=== PATIENT | female | born 1990 | race African-American/Black ===

== ENCOUNTER 2018-09-29 14:25 | Emergency (ER) | payer OTHER ==
[2015-11-16 17:30] VITALS: BP 109/63
[~2018-09-29] VITALS: Ht 167.6 cm; Wt 77.1 kg
--- NOTE | 2018-09-29 15:24 | PHYS DOC ---
Past Medical History Past Medical History: No Pertinent History Past Surgical History: Tonsillectomy Alcohol Use: Occasionally Drug Use: None, Marijuana Adult General Chief Complaint Chief Complaint: PAIN ON URINATION [facility] HPI Patient is a 28 year old AA female, accompanied by her significant other, with complaints of bilateral lower back pain, dysuria, increased urination, and urgency for the last 4 days. Patient states that last night she vomited �2 she denies any vomiting today. Patient also denies any fever, abnormal vaginal discharge, lower abdominal pain, or blood in her urine. She states she just started her menstrual cycle but there was no blood in her urine prior to starting her menstrual cycle. She currently reports that her pain is a 9 out of 10 on the pain scale. Nothing has helped reduce her pain. Review of Systems Review of Systems Constitutional: Denies fever, reports chills Respiratory: Denies cough or shortness of breath [] Cardiovascular: No additional information not addressed in HPI [] GI: Denies abdominal pain or diarrhea; see history of present illness : See history of present illness Musculoskeletal: Reports bilateral low back pain Integument: Denies rash or skin lesions [] Neurologic: Denies headache, focal weakness or sensory changes [] Current Medications Current Medications Current Medications Medications (Trade) Dose Ordered Sig/Arturo Start Time Stop Time Status Last Admin Dose Admin Ceftriaxone Sodium (Rocephin Im) 1,000 mg 1X ONCE 09/29/18 16:30 09/29/18 16:31 UNV Allergies Allergies Allergies Coded Allergies Type Severity Reaction Last Updated Verified No Known Drug Allergies 01/25/14 No Physical Exam Physical Exam Constitutional: Well developed, well nourished, no acute distress, non-toxic appearance. [] HENT: Normocephalic, atraumatic, bilateral external ears normal, oropharynx moist, no oral exudates, nose normal. [] Eyes: conjunctiva normal, no discharge. [] Neck: Normal range of motion, no stridor. [] Cardiovascular:Heart rate regular rhythm, no murmur [] Lungs & Thorax: Bilateral breath sounds clear to auscultation [] Abdomen: soft, no tenderness, no masses, no pulsatile masses. [] Skin: Warm, dry, no erythema, no rash. [] Back: Bilateral CVA tenderness Extremities: No cyanosis, ROM intact Neurologic: Alert and oriented X 3, normal motor function, normal sensory function, no focal deficits noted. [] Psychologic: Affect normal, judgement normal, mood normal. [] Current Patient Data Vital Signs Vital Signs Date Time Temp Pulse Resp B/P (MAP) Pulse Ox O2 Delivery O2 Flow Rate FiO2 09/29/18 14:30 98.3 92 24 125/55 (78) 93 Room Air 98.3 Lab Values Laboratory Tests Test 09/29/18 15:21 09/29/18 15:23 POC Urine HCG, Qualitative Hcg negative (Negative) Urine Collection Type Unknown Urine Color Yellow Urine Clarity Clear Urine pH 8.0 Urine Specific [place] 1.020 Urine Protein 30 mg/dL (NEG-TRACE) Urine Glucose (UA) Negative mg/dL (NEG) Urine Ketones (Stick) >=80 mg/dL (NEG) Urine Blood Moderate (NEG) Urine Nitrite Negative (NEG) Urine Bilirubin Negative (NEG) Urine Urobilinogen Dipstick 1.0 mg/dL (0.2 mg/dL) Urine Leukocyte Esterase Moderate (NEG) Urine RBC 6-10 /HPF (0-2) Urine WBC >40 /HPF (0-4) Urine Squamous Epithelial Cells Mod /LPF Urine Bacteria Few /HPF (0-FEW) Urine Hyaline Casts Few /HPF Urine Mucus Marked /LPF EKG EKG [] Radiology/Procedures Radiology/Procedures [] Course & Med Decision Making Course & Med Decision Making Pertinent Labs and Imaging studies reviewed. (See chart for details) Dx: UTI pyelonephritis 1 gm IM rocephin given in ER. Prescription written for ciprofloxacin, increase clear fluids, avoid bladder irritants. Follow up with PCP if sx persist, return to ER if sx worsen. Patient verbalized an understanding of home care, medications, follow-up, and return to ED instructions and was in agreement with the plan of care. [] Dragon Disclaimer Dragon Disclaimer This electronic medical record was generated, in whole or in part, using a voice recognition dictation system. Departure Departure Impression: Primary Impression: Urinary tract infection Additional Impression: Pyelonephritis Disposition: HOME, SELF-CARE Condition: STABLE Referrals: NO PCP (PCP) Patient Instructions: Pyelonephritis, Adult, [id number] Additional Instructions: Fill prescription(s) and use as directed. Avoid bladder irritants such as caffeine, carbonation, and spicy foods. Increase clear fluids. Follow up with your primary care doctor if symptoms persist, return to the ER if symptoms worsen. Scripts Ciprofloxacin Hcl (CIPROFLOXACIN HCL) 500 Mg Tablet 1 TAB PO BID for 7 Days, #14 TAB 0 Refills Prov: ZAHIRA RAMIREZ APRN 09/29/18 Problem Qualifiers Primary Impression: Urinary tract infection Urinary tract infection type: acute pyelonephritis Qualified Codes: N10 - Acute pyelonephritis ZAHIRA RAMIREZ APRN Sep 29, 2018 15:24
[2018-09-29 15:30] LABS: BILIRUBIN,URINE NEGATIVE (NEG); CLARITY,URINE CLEAR; COLOR,URINE YELLOW; NITRITE,URINE NEGATIVE (NEG); PROTEIN,URINE 30 mg/dL (NEG-TRACE)
[2018-09-29 15:42] LABS: BACTERIA,URINE FEW /HPF (0-FEW); SQUAMOUS EPITHELIAL CELL,UR MOD /LPF; WBC,URINE >40 /HPF (0-4)
[2018-09-29 15:43] LABS: HYALINE CASTS, URINE FEW /HPF
[2018-09-29] MEDS ORDERED: CIPR500T PO (16:20)
[2018-09-29] MEDS ORDERED: cefTRIAXone IM 250 MG VIAL IM ONE ×2 (16:30)
[2018-09-29] MEDS ORDERED: cefTRIAXone IM 1 GM VIAL IM ONE (16:30)
== END 2018-09-29 16:45 | disposition home or self-care (01) ==
LOC: ER 14:25
DX: N10 Acute pyelonephritis (principal); Z90.89 Acquired absence of other organs
CPT/HCPCS: 81001; 81025; 87086; 96372; 99283; J0696; 87186

== ENCOUNTER 2020-07-31 15:03 | Emergency (ER) | payer SELFPAY ==
[~2020-07-31] VITALS: Ht 175.3 cm; Wt 72.7 kg
[~2020-07-31 15:03] MED LIST: CIPR500T PO
--- NOTE | 2020-07-31 15:29 | PHYS DOC ---
Past Medical History Past Medical History: Seizure Past Surgical History: Tonsillectomy Smoking Status: Never Smoker Alcohol Use: Occasionally Drug Use: Marijuana General Adult EDM: Chief Complaint: SEIZURE HPI: HPI: Patient is a 30 year old female comes emergency department via EMS who reports patient had a seizure at work just prior to arrival, it was reported that employees witnessed her having a seizure which they believe was grand mal lasted approximately 30 seconds, patient did not lose continence of bowel or bladder, patient states that she does not remember having the seizure, she remembers working at work and then waking up here in the emergency room bed. Patient is currently alert and oriented x3, patient states she feels just a little off and foggy in her head at this time. Patient denies biting her lips or any of her oral mucosa or tongue. Patient denies any aches or pains, denies other illnesses or physical complaints. Patient does deny recent fever or chills, denies cough, denies shortness of breath, denies chest pain, denies abdominal pains, denies any urinary symptoms, denies vaginal discharge or STI concerns. Patient states that she takes Keppra for her seizures, at this time she cannot recall what her doses patient does report that she has been moving residence and is unsure if she took her morning dose of Keppra or not. Patient states her last grand mal seizure was approximately 3 months ago, patient states that while she does come to the emergency department when she does have seizures on occasion, she has not been hospitalized since her first seizure years ago. Patient's live-in boyfriend at bedside reports that she sees a Dr. Martínez at the epilepsy clinic at [facility], patient's boyfriend states that her last emergency room visit was at [facility] for seizures, however her last seizure she did not go to the emergency department and where he contacted Dr. Martínez and Dr. Martínez adjusted her dose from 600 mg down to 300 mg daily Keppra approximately 3 months ago. Patient's boyfriend states that the patient is presenting in a postictal state very similar to her past seizures. Patient's boyfriend states that they are in fact moving residence and he is also unsure on whether or not she took her morning dose of 300 mg Keppra today. Review of Systems: Review of Systems: 14 body systems of review of systems have been reviewed. See HPI for pertinent positives and negative responses, otherwise all other systems are negative, nonpertinent or noncontributory. Heart Score: Risk Factors: Risk Factors: DM, Current or recent (<one month) smoker, HTN, HLP, family history of CAD, obesity. Risk Scores: Score 0 - 3: 2.5% MACE over next 6 weeks - Discharge Home Score 4 - 6: 20.3% MACE over next 6 weeks - Admit for Clinical Observation Score 7 - 10: 72.7% MACE over next 6 weeks - Early Invasive Strategies Current Medications: Keppra 300 mg daily p.o. Allergies: Allergies: Allergies Coded Allergies Type Severity Reaction Last Updated Verified No Known Drug Allergies 01/25/14 No Physical Exam: PE: Constitutional: Well developed, well nourished, no acute distress, non-toxic ap pearance. HENT: Normocephalic, atraumatic, bilateral external ears normal, oropharynx moist, no oral exudates, nose normal. Tongue and oral mucosa within normal limits no signs of trauma. Eyes: PERRLA, EOMI, conjunctiva normal, no discharge. Neck: Normal range of motion, no tenderness, supple, no stridor. Cardiovascular:Heart rate regular rhythm, no murmur heart sounds S1-S2 to auscultation. Lungs & Thorax: Bilateral breath sounds clear to auscultation 4 quadrants. Abdomen: Bowel sounds normal, soft, no tenderness, no masses, no pulsatile masses. Skin: Warm, dry, no erythema, no rash. Back: No tenderness, no CVA tenderness. Extremities: No tenderness, no cyanosis, no clubbing, ROM intact, no edema. Neurologic: Alert and oriented X 3, normal motor function, normal sensory function, no focal deficits noted. Patient answers questions slowly, consistent with postictal state. Psychologic: Affect normal, judgement normal, mood normal. Current Patient Data: Vital Signs: Vital Signs Date Time Temp Pulse Resp B/P (MAP) Pulse Ox O2 Delivery O2 Flow Rate FiO2 07/31/20 15:03 98.7 74 32 115/56 (75) 100 Room Air 98.7 EKG: EKG: [] Radiology/Procedures: Radiology/Procedures: STATUS: REG ER ORD. PHYSICIAN: PAOLO WHITLEY APRN REASON: SEIZURE. PT REFUSED TO REMOVE EAR PIERCING PROCEDURE: CT HEAD WO CONTRAST CT head without contrast: Reason for examination: Seizure. Axial images were obtained through the brain. No contrast was administered. Patient refused to remove ear piercings which caused streak artifact. Exposure: One or more of the following individualized dose reduction techniques were utilized for this examination: 1. Automated exposure control 2. Adjustment of the mA and/or kV according to patient size 3. Use of iterative reconstruction technique. Ventricular systems are symmetric and not abnormally dilated. No midline shift is seen. There is no evidence of intracranial hemorrhage, infarct, mass or edema. Note is however made of a curvilinear hypodensity extending medially from the posterior aspect of the left lateral ventricle. This is likely artifactual however closed schizencephaly cannot be excluded and further evaluation with MRI should be considered. No abnormalities are seen at the orbits. The paranasal sinuses and mastoid air cells are clear. No acute skull abnormality is evident. IMPRESSION: Curvilinear hypodensity extending medially off the posterior aspect of the left lateral ventricle extending to the posterior falx. This is likely artifactual however schizencephaly cannot be excluded. Further evaluation with MRI should be considered. No other intracranial abnormality seen in the brain. Electronically signed by: Angela Espinosa MD (07/31/2020 5:34 PM) [facility] DICTATED and SIGNED BY: ANGELA ESPINOSA MD DATE: 07/31/20 [id number] 0 Course & Med Decision Making: Course & Med Decision Making Pertinent Labs and Imaging studies reviewed. (See chart for details) 30-year-old female presented emergency department via EMS with complaint of seizure at work last approximately 30 minutes, vital signs reviewed and stable, patient's physical exam was consistent with a postictal state, and ER work-up was started to to include urine assay, serum lab work with Keppra level, CT head related to patient does not have a baseline CAT scan at this facility. Patient is currently alert and oriented x3, patient was not incontinent of bowel or bladder, no signs of oral trauma or biting of the tongue. Awaiting results at this time. Patient lab results are complete, except for Keppra level per lab statement it will take a few days they have to send it out for study, her urine was not infected, she was not , her urine drug screen showed positive for marijuana only, her CBC and CMP were equivocal and unremarkable. Reexamination of patient, patient alert and oriented x3, no longer in a postictal state, patient states she feels much better, patient denies any physical problems or physical ailments, patient discharged to home, patient's CAT scan showed a possible abnormality in which the patient states she is well aware of, however recommended to patient she follow-up with her neurologist at the epilepsy center at to discuss CT findings here at [facility] today. Patient gave verbal understanding of discharge home instructions, return to ER precautions and concerns, patient had no further questions or concerns, patient discharged home without incident. Patient states she feels much better patient appears well and is nontoxic, patient is safe for discharge home. Diagnosis seizures Dragon Disclaimer: Dragon Disclaimer: This electronic medical record was generated, in whole or in part, using a voice recognition dictation system. Departure Departure Impression: Primary Impression: Seizure Additional Impression: Abnormal CT of brain Disposition: 01 DC HOME SELF CARE/HOMELESS Condition: GOOD Referrals: NO PCP (PCP) Patient Instructions: Seizure, Adult Additional Instructions: Please continue taking your normal Keppra dose, follow-up with your doctor at in the epilepsy center for possible adjustment of your Keppra dose, return to [facility] emergency department for worsening symptoms or further concerns. Please follow-up with your epilepsy [facility] Dr. Martínez and discussed with them abnormal CT scan. PAOLO WHITLEY APRN Jul 31, 2020 15:29
[2020-07-31 16:48] LABS: BASO % 0 % (0-3); EOS % 0 % (0-3); HEMATOCRIT 40.5 % (36.0-47.0); HEMOGLOBIN 13.6 g/dL (12.0-15.5); LYMPH # 0.9 x10^3/uL (1.0-4.8); LYMPH % 10 % (24-48); MEAN CORPUSCULAR HEMOGLOBIN 30 pg (25-35); MEAN CORPUSCULAR HGB CONC 34 g/dL (31-37); MEAN CORPUSCULAR VOLUME 90 fL (79-100); MONO # 0.4 x10^3/uL (0.0-1.1); MONO % 5 % (0-9); NEUT # 7.6 x10^3/uL (1.8-7.7); NEUT % 85 % (31-73); PLATELET COUNT 216 x10^3/uL (140-400); RED BLOOD COUNT 4.51 x10^6/uL (3.50-5.40); RED CELL DISTRIBUTION WIDTH 14.1 % (11.5-14.5); WHITE BLOOD COUNT 9.1 x10^3/uL (4.0-11.0)
[2020-07-31 16:56] LABS: BILIRUBIN,URINE NEGATIVE (NEG); CLARITY,URINE CLEAR; COLOR,URINE YELLOW; NITRITE,URINE NEGATIVE (NEG); PH,URINE 6.5 (<5.0-8.0); PROTEIN,URINE NEGATIVE (NEG-TRACE); UROBILINOGEN,URINE 0.2 mg/dL (0.2 mg/dL)
[2020-07-31 17:13] LABS: HYALINE CASTS, URINE MODERATE /HPF
[2020-07-31 17:14] LABS: BACTERIA,URINE MODERATE /HPF (0-FEW); RBC,URINE 0 /HPF (0-2)
[2020-07-31 17:25] LABS: AMPHETAMINE/METHAMPHETAMINE NEG (NEG); BARBITURATES NEG (NEG); BENZODIAZEPINES NEG (NEG); COCAINE NEG (NEG); METHADONE NEG (NEG); OPIATES NEG (NEG); PHENCYCLIDINE NEG (NEG)
[2020-07-31 17:26] LABS: CANNABINOIDS POS (NEG)
--- NOTE | 2020-07-31 17:37 | RAD ---
CT head without contrast: Reason for examination: Seizure. Axial images were obtained through the brain. No contrast was administered. Patient refused to remove ear piercings which caused streak artifact. Exposure: One or more of the following individualized dose reduction techniques were utilized for this examination: 1. Automated exposure control 2. Adjustment of the mA and/or kV according to patient size 3. Use of iterative reconstruction technique. Ventricular systems are symmetric and not abnormally dilated. No midline shift is seen. There is no evidence of intracranial hemorrhage, infarct, mass or edema. Note is however made of a curvilinear hypodensity extending medially from the posterior aspect of the left lateral ventricle. This is likely artifactual however closed schizencephaly cannot be excluded and further evaluation with MRI should be considered. No abnormalities are seen at the orbits. The paranasal sinuses and mastoid air cells are clear. No acute skull abnormality is evident. IMPRESSION: Curvilinear hypodensity extending medially off the posterior aspect of the left lateral ventricle extending to the posterior falx. This is likely artifactual however schizencephaly cannot be excluded. Further evaluation with MRI should be considered. No other intracranial abnormality seen in the brain. Electronically signed by: Angela Cullen MD (07/31/2020 5:34 PM) [facility]
[2020-07-31 19:11] LABS: ALBUMIN 3.9 g/dL (3.4-5.0); ALBUMIN/GLOBULIN RATIO 1.1 (1.0-1.7); CALCIUM 9.3 mg/dL (8.5-10.1); TOTAL PROTEIN 7.4 g/dL (6.4-8.2)
[2020-07-31 19:12] LABS: CREATININE 0.9 mg/dL (0.6-1.0); GFR 89.6; TOTAL BILIRUBIN 0.3 mg/dL (0.2-1.0)
[2020-07-31 21:13] VITALS: BP 98/52
== END 2020-07-31 21:22 | disposition home or self-care (01) ==
LOC: ER 15:03
DX: R56.9 Unspecified convulsions (principal); R93.0 Abnormal findings on diagnostic imaging of skull and head, not elsewhere classified
CPT/HCPCS: 70450; 80053; 80177; 80307; 81001; 81025; 85025; 87086; 99285-25

== ENCOUNTER 2020-11-22 11:14 | Emergency (ER) | payer SELFPAY ==
[~2020-11-22] VITALS: Ht 170.2 cm; Wt 75.0 kg
[~2020-11-22 11:14] MED LIST changes: -CIPR500T PO; +CIPR500T2 PO
[2020-11-22 11:15] VITALS: BP 112/59
[2020-11-22] MEDS ORDERED: OXcarbazepine 300 MG TABLET PO SCH (12:30)
[2020-11-22] MEDS ORDERED: ONDANSETRON ODT 4 MG TAB.RAPDIS. PO ONE (13:15)
[2020-11-22] MEDS ORDERED: OXcarbazepine 300 MG TABLET PO ONE (13:45)
[2020-11-22 13:50] LABS: BILIRUBIN,URINE NEGATIVE (NEG); CLARITY,URINE CLEAR; COLOR,URINE YELLOW; NITRITE,URINE NEGATIVE (NEG); PH,URINE 7.5 (<5.0-8.0); PROTEIN,URINE 100 mg/dL (NEG-TRACE); UROBILINOGEN,URINE 0.2 mg/dL (0.2 mg/dL)
[2020-11-22 14:01] LABS: BACTERIA,URINE MANY /HPF (0-FEW)
[2020-11-22 14:02] LABS: RBC,URINE 0 /HPF (0-2)
[2020-11-22] MEDS ORDERED: CEPH500C PO (14:09)
--- NOTE | 2020-11-22 14:09 | ED.ADGEN ---
Past Medical History Past Medical History: Seizure Past Surgical History: Tonsillectomy Smoking Status: Never Smoker Alcohol Use: Occasionally Drug Use: Marijuana General Adult EDM: Chief Complaint: SEIZURE HPI: HPI: Patient is a 30 year old female who presents emergency department via EMS with reports of having a witnessed seizure while at work this morning. Per EMS patient has a history of seizures. EMS states that the patient did not take her medication this morning. EMS states that coworker said that the patient had a full body seizure that lasted approximately 1 to 2 minutes she has been post ictal ever since the seizure activity. During the seizure the patient was incontinent of urine. Patient is alert to person only at this time therefore HPI is limited. Review of Systems: Review of Systems: Complete ROS is negative unless otherwise noted in HPI. Current Medications: Current Medications Medications (Trade) Dose Ordered Sig/Arturo Start Time Stop Time Status Last Admin Dose Admin Ondansetron HCl (Zofran Odt) 4 mg 1X ONCE 11/22/20 13:15 11/22/20 13:16 DC 11/22/20 13:57 4 MG Oxcarbazepine (Trileptal) 600 mg 1X ONCE 11/22/20 13:45 11/22/20 13:46 DC 11/22/20 13:20 600 MG Allergies: Allergies: Allergies Coded Allergies Type Severity Reaction Last Updated Verified No Known Drug Allergies 01/25/14 No Physical Exam: PE: See Above Constitutional: Well developed, well nourished, no acute distress, non-toxic appearance, confused. [] HENT: Normocephalic, atraumatic, bilateral external ears normal, nose normal. [] Eyes: PERRLA, EOMI, conjunctiva normal, no discharge. [] Neck: Normal range of motion, no stridor. [] Cardiovascular:Heart rate regular rhythm Lungs & Thorax: Respirations even and unlabored, no retractions, no respiratory distress Abdomen: soft, no tenderness Skin: Warm, dry, no erythema, no rash. [] Extremities: No cyanosis, ROM intact, no edema. [] Neurologic: Alert and oriented X 1, normal motor, normal sensory no focal deficits noted. [] Psychologic: Affect normal, judgement normal, mood normal. [] Current Patient Data: Labs: Laboratory Tests Test 11/22/20 13:40 11/22/20 13:43 Urine Collection Type Void Urine Color Yellow Urine Clarity Clear Urine pH 7.5 (<5.0-8.0) Urine Specific [place] 1.020 (1.000-1.030) Urine Protein 100 mg/dL (NEG-TRACE) Urine Glucose (UA) Negative mg/dL (NEG) Urine Ketones (Stick) Negative mg/dL (NEG) Urine Blood Negative (NEG) Urine Nitrite Negative (NEG) Urine Bilirubin Negative (NEG) Urine Urobilinogen Dipstick 0.2 mg/dL (0.2 mg/dL) Urine Leukocyte Esterase Moderate (NEG) Urine RBC 0 /HPF (0-2) Urine WBC 5-10 /HPF (0-4) Urine Squamous Epithelial Cells Many /LPF Urine Bacteria Many /HPF (0-FEW) Urine Mucus Mod /LPF POC Urine HCG, Qualitative Hcg negative (Negative) Vital Signs: Vital Signs Date Time Temp Pulse Resp B/P (MAP) Pulse Ox O2 Delivery O2 Flow Rate FiO2 11/22/20 11:15 98.1 85 18 112/59 (76) 97 Room Air 98.1 EKG: EKG: [] Heart Score: C/O Chest Pain: No Risk Scores: Score 0 - 3: 2.5% MACE over next 6 weeks - Discharge Home Score 4 - 6: 20.3% MACE over next 6 weeks - Admit for Clinical Observation Score 7 - 10: 72.7% MACE over next 6 weeks - Early Invasive Strategies Radiology/Procedures: Radiology/Procedures: [] Course & Med Decision Making: Course & Med Decision Making Pertinent Labs and Imaging studies reviewed. (See chart for details) Patient presented to the emergency room for evaluation after a seizure at work. On arrival patient was postictal and confused as to what happened she was alert to person only. While in the emergency department the patient returned to normal mental status. Patient states that she forgot to take her seizure medication this morning. She denies any recent fever, she stated that she had had a little bit of pain with urination but denies any hematuria, back pain, or increased urinary frequency. UA revealed a 5-10 white blood cell count in the urine. Prescription written for Keflex, encouraged patient to increase her fluids and avoid bladder irritants. Encouraged family to follow-up with her primary the next 1 to 2 days for reevaluation also encouraged her to follow-up with her neurologist at Patient and her mother verbalized an understanding of home care, medications, follow-up, and return to ED instructions and was in agreement with the plan of care. [] Willian Disclaimer: Willian Disclaimer: This electronic medical record was generated, in whole or in part, using a voice recognition dictation system. Departure Departure Impression: Primary Impression: Seizure Additional Impression: Urinary tract infection Disposition: 01 DC HOME SELF CARE/HOMELESS Condition: STABLE Referrals: UNKNOWN PCP NAME (PCP) Patient Instructions: Seizure, Adult, [id number], Urinary Tract Infection, [id number] Additional Instructions: Fill prescription(s) and take as directed. Avoid bladder irritants such as caffeine, carbonation, and spicy foods. Increase clear fluids. Continue taking your seizure medication as prescribed. I recommend that you follow-up with your neurologist Dr. Guzmán at in the next 1 to 2 days, follow-up with your primary care doctor for further evaluation of urinary tract infection. Return to the ER if your symptoms worsen or fever develops. [facility] [address] [place] [address] [facility] [address] [place] [address] [facility] [address] [place] [address] [facility] [address] [place] [address] [facility] [address] [place] [address] [facility] [address] [place] [address] [facility] [address] [place] [address] [facility] [address] [place] [address] [facility] [address] [place] [address] [facility] [address] [place] [address] Scripts Cephalexin (CEPHALEXIN) 500 Mg Capsule 1 CAP PO BID for 7 Days, #14 CAP 0 Refills Prov: ZAHIRA RAMIREZ TEXTILE TECHNOLOGIST 11/22/20 Problem Qualifiers Additional Impression: Urinary tract infection Urinary tract infection type: site unspecified Hematuria presence: without hematuria Qualified Codes: N39.0 - Urinary tract infection, site not specified ZAHIRA RAMIREZ TEXTILE TECHNOLOGIST Nov 22, 2020 14:09
== END 2020-11-22 14:28 | disposition home or self-care (01) ==
LOC: ER 11:14
DX: N39.0 Urinary tract infection, site not specified (principal); R56.9 Unspecified convulsions; R32 Unspecified urinary incontinence; F12.90 Cannabis use, unspecified, uncomplicated; Z90.89 Acquired absence of other organs
CPT/HCPCS: 81001; 81025; 87086; 99284

== ENCOUNTER 2021-05-14 11:28 | Inpatient (IN) | payer SELFPAY ==
[~2021-05-14] VITALS: Ht 172.7 cm; Wt 91.6 kg
[~2021-05-14 11:28] MED LIST changes: +CEPH500C PO
--- NOTE | 2021-05-14 12:13 | PHYS DOC ---
Past Medical History Past Medical History: Seizure Additional Past Medical Histor: PT UNABLE TO PROVIDE ANY HX AT THIS TIME Past Surgical History: Tonsillectomy Smoking Status: Unknown if ever smoked Additional Information: DOES SMELL OF CIGARETTES AT THIS TIME Alcohol Use: None Drug Use: Marijuana Social History Narrative: UNKNOWN General Adult EDM: Chief Complaint: SEIZURE HPI: HPI: Patient is a 30 year old female who presents with a seizure that reportedly happened at [employer] where she works. Unclear how long the seizure lasted. She was confused after the fact and continued to be confused for EMS. Reported GCS of 10. When I met the patient, she was still somnolent and was not answering questions reliably She reportedly has a history of seizures. Unclear of medication history, or other details regarding her epilepsy history. Review of Systems: Review of Systems: Unable to complete ROS due to altered mental status Heart Score: C/O Chest Pain: No Risk Factors: Risk Factors: DM, Current or recent (<one month) smoker, HTN, HLP, family history of CAD, obesity. Risk Scores: Score 0 - 3: 2.5% MACE over next 6 weeks - Discharge Home Score 4 - 6: 20.3% MACE over next 6 weeks - Admit for Clinical Observation Score 7 - 10: 72.7% MACE over next 6 weeks - Early Invasive Strategies Allergies: Allergies: Allergies Coded Allergies Type Severity Reaction Last Updated Verified No Known Drug Allergies 01/25/14 No Physical Exam: PE: Constitutional: Somnolent, laying in left lateral recumbent position.. [] HENT: No evidence of head trauma. Some frothing secretions at the mouth. Eyes: Pupils 2 mm equal, round reactive to light. [] Neck: supple, no stridor. [] Cardiovascular:Heart rate regular rhythm, no murmur [] Lungs & Thorax: Bilateral breath sounds clear to auscultation [] Abdomen: Bowel sounds normal, soft, no tenderness, no masses, no pulsatile masses. [] Skin: Warm, dry, no erythema, no rash. [] Back: No tenderness, no CVA tenderness. [] Extremities: No tenderness, no cyanosis, no clubbing, ROM intact, no edema. [] Neurologic: Opens eyes to voice. Speech slightly slurred. Not answering questions appropriately, but is completing full sentences at times. Moving all extremities with purpose, but not following commands. Current Patient Data: Vital Signs: Vital Signs Date Time Temp Pulse Resp B/P (MAP) Pulse Ox O2 Delivery O2 Flow Rate FiO2 05/14/21 11:38 98.7 105 16 111/66 (81) 100 Room Air 98.7 EKG: EKG: [] Radiology/Procedures: Radiology/Procedures: [] Impression: [facility] [address] [place] [address] IMAGING REPORT Signed PATIENT: VALENTE SIDHU ACCOUNT: [id number] : 1990 LOCATION: ER AGE: 30 SEX: F EXAM STATUS: REG ER ORD. PHYSICIAN: MILTON MOLINA MD REASON: seizure, prolonged post-ictal phase, H/o abn brain CT. unable to remove obj PROCEDURE: CT HEAD WO CONTRAST PQRS Compliance Statement: One or more of the following individualized dose reduction techniques were utilized for this examination: 1. Automated exposure control 2. Adjustment of the mA and/or kV according to patient size 3. Use of iterative reconstruction technique CT head without contrast 05/14/2021 2:33 PM INDICATION: Seizure with prolonged postictal phase. COMPARISON: CT head 07/31/2020 TECHNIQUE: Multiple axial CT images of the head were obtained from skull base through the vertex without intravenous contrast. FINDINGS: Head: Ventricles, sulci and basal cisterns are within normal limits. There is no hydrocephalus. Garza-white matter differentiation is normal. There is no acute intracranial hemorrhage. There is no mass, mass effect or midline shift. Posteri or fossa is normal in appearance. Previously seen curvilinear hypodensity along the medial left occipital lobe representing occipital horn of left lateral ventricles not definitively seen on the current examination. Visualized portions of the orbits are normal. Paranasal sinuses are well aerated. Mastoid air cells are well aerated. Scalp and calvaria are normal. IMPRESSION: No acute intracranial hemorrhage. Electronically signed by: Stephanie Hinojosa MD (05/14/2021 2:48 PM) [id number] DICTATED and SIGNED BY: STEPHANIE HINOJOSA MD DATE: 05/14/21 [id number] Course & Med Decision Making: Course & Med Decision Making Pertinent Labs and Imaging studies reviewed. (See chart for details) Patient is a 30-year-old female who presents with seizure. Has a known seizure history is on oxcarbazepine. Follows with Dr. Martínez at [facility]. She had a witnessed seizure at work. She has not returned to baseline and continues to be confused here. She then had a recurrent seizure activity lasting approximately 1 minute. This now constitutes status epilepticus as she did not return to baseline. She is given 2 mg IV Ativan and and Keppra 2 g load. Oxcarbazepine level ordered. Her seizure did fortunately stop, but she continues to be agitated. Her boyfriend is at bedside, and provided extra history that she has been admitted approximately 10 times in the last 2 years for status. He states she has been compliant with meds, denies drug or etoh abuse (occasional wine), denies recent stress. Does endorse poor sleep (appox 5 hours nightly) which may be a contributing factor. only sign of infection is on UA straight cath. unable to correlate with history, so ceftriaxone [address] head without acute findings. Will plan on admission today. [address] Willian Disclaimer: Willian Disclaimer: This electronic medical record was generated, in whole or in part, using a voice recognition dictation system. Departure Departure Impression: Primary Impression: Status epilepticus Additional Impression: Pyuria Disposition: ADMITTED INPATIENT Admitting Physician: SAHARA Rosales) Condition: STABLE Referrals: UNKNOWN PCP NAME (PCP) MILTON MOLINA MD May 14, 2021 12:13
[2021-05-14 12:22] LABS: CALCIUM 8.9 mg/dL (8.5-10.1); CREATININE 0.9 mg/dL (0.6-1.0); GFR 89.6; POTASSIUM 3.8 mmol/L (3.5-5.1)
[2021-05-14 13:57] LABS: BILIRUBIN,URINE NEGATIVE (NEG); CLARITY,URINE CLOUDY; COLOR,URINE YELLOW; NITRITE,URINE NEGATIVE (NEG); PH,URINE 7.5 (<5.0-8.0); PROTEIN,URINE 30 mg/dL (NEG-TRACE); UROBILINOGEN,URINE 0.2 mg/dL (0.2 mg/dL)
[2021-05-14] MEDS ORDERED: levETIRAcetam 1,000 MG in IV DEXTROSE 5% 100ML 100 ML IV ONE (14:00)
[2021-05-14 14:01] LABS: BARBITURATES NEG (NEG); BENZODIAZEPINES NEG (NEG); CANNABINOIDS POS (NEG); COCAINE NEG (NEG); METHADONE NEG (NEG); OPIATES NEG (NEG); PHENCYCLIDINE NEG (NEG)
[2021-05-14 14:03] LABS: AMPHETAMINE/METHAMPHETAMINE NEG (NEG)
[2021-05-14 14:07] LABS: BACTERIA,URINE MOD /HPF (0-FEW); WBC,URINE 20-40 /HPF (0-4)
--- NOTE | 2021-05-14 14:50 | RAD ---
PQRS Compliance Statement: One or more of the following individualized dose reduction techniques were utilized for this examinat ion: 1. Automated exposure control 2. Adjustment of the mA and/or kV according to patient size 3. Use of iterative reconstruction technique CT head without contrast 05/14/2021 2:33 PM INDICATION: Seizure with prolonged postictal phase. COMPARISON: CT head 07/31/2020 TECHNIQUE: Multiple axial CT images of the head were obtained from skull base through the vertex with out intravenous contrast. FINDINGS: Head: Ventricles, sulci and basal cisterns are within normal limits. There is no hydrocephalus. Garza-white matter differentiation is normal. There is no acute intracranial hemorrhage. There is no mass, mass e ffect or midline shift. Posterior fossa is normal in appearance. Previously seen curvilinear hypodens ity along the medial left occipital lobe representing occipital horn of left lateral ventricles not d efinitively seen on the current examination. Visualized portions of the orbits are normal. Paranasal sinuses are well aerated. Mastoid air cells a re well aerated. Scalp and calvaria are normal. IMPRESSION: No acute intracranial hemorrhage. Electronically signed by: Naima Jones MD (05/14/2021 2:48 PM) [id number]
[2021-05-14] MEDS ORDERED: cefTRIAXone IV Push 1 GM VIAL. IVP ONE (15:00)
--- NOTE | 2021-05-14 17:21 | PDOC1 ---
History and Physical Date of Service: DOS: DATE: 05/14/21 TIME: 17:11 Chief Complaint: Chief Complain: Seizure activity History of Present Illness: HPI: History obtained from discussion with the ED physician and chart review: 30 year old female who presents with a seizure that reportedly happened at [employer] where she works. Unclear how long the seizure lasted. She was confused after the fact and continued to be confused for EMS. Reported GCS of 10. She reportedly has a history of seizures. Unclear of medication history, or other details regarding her epilepsy history. ED course: Upon arrival to the ED, patient had a recurrent seizure that approximately lasted for 1 minute. She was given 2 mg IV Ativan and a Keppra 2 g load. Boyfriend at bedside was able to provide additional history. Patient's boyfriend stated that she has less sleep the past couple days about 5 hours per night. She was given one dose of ceftriaxone for presumed UTI. Neurology was consulted and will admit for further observation and evaluation by neurology. Past Medical/Surgical History: PMH/PSH: Past Medical History: Seizure, PT UNABLE TO PROVIDE FURTHER HX AT THIS TIME Past Surgical History: Tonsillectomy Allergies: Allergies: Coded Allergies: No Known Drug Allergies (Unverified , 01/25/14) Family History: Family History: Reviewed with no relevant findings Social History: Social History: Unable to obtain due to altered mental status Current Medications: Current Medications Current Medications Lorazepam (Ativan Inj) 2 mg STK-MED ONCE .ROUTE ; Start 05/14/21 at 13:33; Stop 05/14/21 at 13:33; Status DC Lorazepam (Ativan Inj) 2 mg 1X ONCE IVP Last administered on 05/14/21at 14:10; Start 05/14/21 at 14:00; Stop 05/14/21 at 14:01; Status DC Levetiracetam 1000 mg/Dextrose 110 ml @ 440 mls/hr 1X ONCE IV ; Start 05/14/21 at 14:00; Stop 05/14/21 at 14:14; Status UNV Levetiracetam 1000 mg/Dextrose 110 ml @ 440 mls/hr 1X ONCE IV Last a dministered on 05/14/21at 14:11; Start 05/14/21 at 14:00; Stop 05/14/21 at 14:14; Status DC Ceftriaxone Sodium (Rocephin) 1 gm 1X ONCE IVP ; Start 05/14/21 at 15:00; Stop 05/14/21 at 15:01; Status DC Active Scripts Active Cephalexin 500 Mg Capsule 1 Cap PO BID 7 Days Ciprofloxacin Hcl 500 Mg Tablet 1 Tab PO BID 7 Days ROS: Review of Systems Review of System Unable to obtain due to altered mental status Physical Exam: Vital Signs: Vital Signs Date Time Temp Pulse Resp B/P (MAP) Pulse Ox O2 Delivery O2 Flow Rate FiO2 05/14/21 14:30 83 100 05/14/21 11:38 98.7 16 111/66 (81) Room Air 98.7 Physcial Exam: General: Well developed, well nourished, no acute distress, well appearing HEENT: Pupils equally round and reactive to light, EOMI, no discharge, normal conjunctiva Neck: Supple, no nuchal rigidity, no JVD, trachea midline, no tenderness Cardiac: RRR, no murmurs, no gallops, no rubs Chest/Lungs: CTAB, no wheeze, no rhonchi, no crackles Abdomen: soft, non-distended, no guarding, no peritoneal signs, non-tender Back: No tenderness Extremities: no edema, pulses intact, non-tender,capillary refill <3 sec bilateral upper and lower extremities, Neuro: Able to open eyes to my voice. Speech is mumbled. Patient unable to speak full sentences and not able to answer my questions. Patient has purposeful extremity movements but does not follow commands. Labs: Labs: Laboratory Tests Test 05/14/21 11:45 05/14/21 13:45 05/14/21 13:50 Sodium Level 137 mmol/L (136-145) Potassium Level 3.8 mmol/L (3.5-5.1) Chloride Level 104 mmol/L (98-107) Carbon Dioxide Level 24 mmol/L (21-32) Anion Gap 9 (6-14) Blood Urea Nitrogen 9 mg/dL (7-20) Creatinine 0.9 mg/dL (0.6-1.0) Estimated GFR (Cockcroft-Gault) 89.6 Glucose Level 148 mg/dL (70-99) Calcium Level 8.9 mg/dL (8.5-10.1) Ethyl Alcohol Level < 10 mg/dL (0-10) Urine Collection Type U cath Urine Color Yellow Urine Clarity Cloudy Urine pH 7.5 (<5.0-8.0) Urine Specific [place] 1.020 (1.000-1.030) Urine Protein 30 mg/dL (NEG-TRACE) Urine Glucose (UA) Negative mg/dL (NEG) Urine Ketones (Stick) Negative mg/dL (NEG) Urine Blood Negative (NEG) Urine Nitrite Negative (NEG) Urine Bilirubin Negative (NEG) Urine Urobilinogen Dipstick 0.2 mg/dL (0.2 mg/dL) Urine Leukocyte Esterase Moderate (NEG) Urine RBC 3-5 /HPF (0-2) Urine WBC 20-40 /HPF (0-4) Urine Squamous Epithelial Cells Mod /LPF Urine Bacteria Mod /HPF (0-FEW) Urine Mucus Slight /LPF Urine Opiates Screen Neg (NEG) Urine Methadone Screen Neg (NEG) Urine Barbiturates Neg (NEG) Urine Phencyclidine Screen Neg (NEG) Urine Amphetamine/Methamphetamine Neg (NEG) Urine Benzodiazepines Screen Neg (NEG) Urine Cocaine Screen Neg (NEG) Urine Cannabinoids Screen Pos (NEG) Urine Ethyl Alcohol Neg (NEG) Bedside Urine HCG, Qualitative Hcg negative (Negative) Laboratory Tests Test 05/14/21 11:45 05/14/21 13:45 05/14/21 13:50 Sodium Level 137 mmol/L (136-145) Potassium Level 3.8 mmol/L (3.5-5.1) Chloride Level 104 mmol/L (98-107) Carbon Dioxide Level 24 mmol/L (21-32) Anion Gap 9 (6-14) Blood Urea Nitrogen 9 mg/dL (7-20) Creatinine 0.9 mg/dL (0.6-1.0) Estimated GFR (Cockcroft-Gault) 89.6 Glucose Level 148 mg/dL (70-99) Calcium Level 8.9 mg/dL (8.5-10.1) Ethyl Alcohol Level < 10 mg/dL (0-10) Urine Collection Type U cath Urine Color Yellow Urine Clarity Cloudy Urine pH 7.5 (<5.0-8.0) Urine Specific [place] 1.020 (1.000-1.030) Urine Protein 30 mg/dL (NEG-TRACE) Urine Glucose (UA) Negative mg/dL (NEG) Urine Ketones (Stick) Negative mg/dL (NEG) Urine Blood Negative (NEG) Urine Nitrite Negative (NEG) Urine Bilirubin Negative (NEG) Urine Urobilinogen Dipstick 0.2 mg/dL (0.2 mg/dL) Urine Leukocyte Esterase Moderate (NEG) Urine RBC 3-5 /HPF (0-2) Urine WBC 20-40 /HPF (0-4) Urine Squamous Epithelial Cells Mod /LPF Urine Bacteria Mod /HPF (0-FEW) Urine Mucus Slight /LPF Urine Opiates Screen Neg (NEG) Urine Methadone Screen Neg (NEG) Urine Barbiturates Neg (NEG) Urine Phencyclidine Screen Neg (NEG) Urine Amphetamine/Methamphetamine Neg (NEG) Urine Benzodiazepines Screen Neg (NEG) Urine Cocaine Screen Neg (NEG) Urine Cannabinoids Screen Pos (NEG) Urine Ethyl Alcohol Neg (NEG) Bedside Urine HCG, Qualitative Hcg negative (Negative) Images: Images PROCEDURE: CT HEAD WO CONTRAST PQRS Compliance Statement: One or more of the following individualized dose reduction techniques were utilized for this examination: 1. Automated exposure control 2. Adjustment of the mA and/or kV according to patient size 3. Use of iterative reconstruction technique CT head without contrast 05/14/2021 2:33 PM INDICATION: Seizure with prolonged postictal phase. COMPARISON: CT head 07/31/2020 TECHNIQUE: Multiple axial CT images of the head were obtained from skull base through the vertex without intravenous contrast. FINDINGS: Head: Ventricles, sulci and basal cisterns are within normal limits. There is no hydrocephalus. Garza-white matter differentiation is normal. There is no acute intracranial hemorrhage. There is no mass, mass effect or midline shift. Posterior fossa is normal in appearance. Previously seen curvilinear hypodensity along the medial left occipital lobe representing occipital horn of left lateral ventricles not definitively seen on the current examination. Visualized portions of the orbits are normal. Paranasal sinuses are well aerated. Mastoid air cells are well aerated. Scalp and calvaria are normal. IMPRESSION: No acute intracranial hemorrhage. Assessment/Plan Assessment/Plan Recurrent seizure activity Acute toxic and infectious encephalopathy Acute cystitis THC positivity Admit to hospitalist service for further management Neurology consult for seizure evaluation Continue empiric IV antibiotics Pending urine cultures SCD for DVT prophylaxis Continue IV fluids N.p.o. for now CODE STATUS full code Discussed with RN and SW Disposition inpatient management as above DPOA: Crystal Arenas Justifications for Admission Other Justification KASSI JOSÉ MD May 14, 2021 17:21
[2021-05-14] MEDS ORDERED: DOCUSATE SODIUM 100 MG CAPSULE. PO PRN (17:30)
[2021-05-14] MEDS ORDERED: ACETAMINOPHEN 325 MG TABLET. PO PRN (17:30)
[2021-05-14] MEDS ORDERED: ONDANSETRON PF 4 MG/2 ML VIAL. IVP PRN (17:30)
[2021-05-14] MEDS ORDERED: PROCHLORPERAZINE 10 MG/2 ML VIAL. IV PRN (17:30)
[2021-05-14] MEDS ORDERED: SENNOSIDES 8.6 MG TABLET PO PRN (17:30)
[2021-05-14] MEDS ORDERED: DEXTROSE 50% 25 GM / 50ML DISP.SYRIN. IV PRN (17:30)
[2021-05-14 19:25] VITALS: BP 130/73
[2021-05-14] MEDS: IV NORMAL SALINE 1000ML BAG 1,000 ML IV SCH (19:47)
[2021-05-14] MEDS ORDERED: OXCA300T19 PO (21:00)
--- NOTE | 2021-05-14 22:00 | NUR ---
ADMIT NOTE The patient, VALENTE SIDHU, 30 y/o, F admitted by KASSI JOSÉ MD, was given written information regarding hospital policies, unit procedures and contact persons. Patient orientated to room, seizure precautions in place, and plan of care discussed; all personal belongings left in room with patient. Patient drowsy on admit to floor but able to answer most questions appropriately. Patient able to verify allergies and active medications/preferred pharmacy; patient unable to recall immunization history. Per patient's request pt's mother notified of admission. Patient resting in bed, bed in lowest/locked position, side rails padded, bed alarm active, and call light within reach; no other needs voiced at this time.
[2021-05-14 23:00] VITALS: BP 115/71
[2021-05-15 03:00] VITALS: BP 103/73
[2021-05-15] MEDS: IV NORMAL SALINE 1000ML BAG 1,000 ML IV SCH ×3 (04:48→21:07)
[2021-05-15 07:00] VITALS: BP 95/51
[2021-05-15 07:34] LABS: BASO % 0 % (0-3); EOS % 0 % (0-3); HEMATOCRIT 36.5 % (36.0-47.0); HEMOGLOBIN 12.4 g/dL (12.0-15.5); LYMPH # 1.9 x10^3/uL (1.0-4.8); LYMPH % 19 % (24-48); MEAN CORPUSCULAR HEMOGLOBIN 30 pg (25-35); MEAN CORPUSCULAR HGB CONC 34 g/dL (31-37); MEAN CORPUSCULAR VOLUME 89 fL (79-100); MONO # 0.8 x10^3/uL (0.0-1.1); MONO % 8 % (0-9); NEUT # 7.4 x10^3/uL (1.8-7.7); NEUT % 73 % (31-73); PLATELET COUNT 239 x10^3/uL (140-400); RED CELL DISTRIBUTION WIDTH 14.2 % (11.5-14.5); WHITE BLOOD COUNT 10.1 x10^3/uL (4.0-11.0)
[2021-05-15 08:05] LABS: CALCIUM 8.6 mg/dL (8.5-10.1); CREATININE 0.7 mg/dL (0.6-1.0); GFR 119.7; MAGNESIUM 1.8 mg/dL (1.8-2.4); PHOSPHORUS 2.9 mg/dL (2.6-4.7); POTASSIUM 3.4 mmol/L (3.5-5.1)
[2021-05-15] MEDS: OXcarbazepine 300 MG TABLET PO SCH ×2 (08:30→21:06)
--- NOTE | 2021-05-15 10:21 | NUR ---
SW following. Discussed with RN, pt from home, room air, NPO. Neuro following. Med Assist following for self pay status. SW will continue to follow.
[2021-05-15 10:45] VITALS: BP 101/53
--- NOTE | 2021-05-15 11:26 | PDOC2 ---
NEUROLOGY CONSULT Date of Service DOS: DATE: 05/15/21 TIME: 11:21 Reason for Consult Reason for Consult: Seizures Referring Physician Referring Physician: Dr. Gomez Source Source: Chart review, Patient History of Present Illness History of Present Illness The patient is a 30-year-old right-handed female who had a seizure at [facility], and some additional seizures after that. She came to the emergency department. She was lethargic and unable to give much history last night. She tells me that she has had seizures for about 5 years and sees a neurologist at [facility]. She is on oxcarbazepine. She thinks she may have been on Dilantin before that. She did receive a dose of levetiracetam last night and has had no further seizures. She is not sure if she missed some doses of her medication. She also smokes marijuana. There is no history of stroke or head injury. She generally goes several months between seizures. She has had MRI and EEG studies in the past but does not know details. 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 Current Medications Current Medications Current Medications Lorazepam (Ativan Inj) 2 mg STK-MED ONCE .ROUTE ; Start 05/14/21 at 13:33; Stop 05/14/21 at 13:33; Status DC Lorazepam (Ativan Inj) 2 mg 1X ONCE IVP Last administered on 05/14/21at 14:10; Start 05/14/21 at 14:00; Stop 05/14/21 at 14:01; Status DC Levetiracetam 1000 mg/Dextrose 110 ml @ 440 mls/hr 1X ONCE IV ; Start 05/14/21 at 14:00; Stop 05/14/21 at 14:14; Status UNV Levetiracetam 1000 mg/Dextrose 110 ml @ 440 mls/hr 1X ONCE IV Last administered on 05/14/21at 14:11; Start 05/14/21 at 14:00; Stop 05/14/21 at 14:14; Status DC Ceftriaxone Sodium (Rocephin) 1 gm 1X ONCE IVP Last administered on 05/14/21at 19:09; Start 05/14/21 at 15:00; Stop 05/14/21 at 15:01; Status DC Ceftriaxone Sodium (Rocephin) 1 gm Q24H IVP ; Start 05/15/21 at 15:00 Sennosides (Senna) 17.2 mg PRN BID PRN PO CONSTIPATION; Start 05/14/21 at 17:30 Docusate Sodium (Colace) 100 mg PRN DAILY PRN PO HARD STOOLS; Start 05/14/21 at 17:30 Ondansetron HCl (Zofran) 4 mg PRN Q6HRS PRN IVP NAUSEA/VOMITING; Start 05/14/21 at 17:30 Dextrose (Dextrose 50%-Water Syringe) 12.5 gm PRN Q15MIN PRN IV SEE COMMENTS; Start 05/14/21 at 17:30 Sodium Chloride 1,000 ml @ 100 mls/hr Q10H IV Last administered on 05/15/21at 04:48; Start 05/14/21 at 17:30 Acetaminophen (Tylenol) 650 mg PRN Q4HRS PRN PO TEMP OVER 100.4F OR MILD PAIN; Start 05/14/21 at 17:30 Prochlorperazine Edisylate (Compazine) 10 mg PRN Q6HRS PRN IV NAUSEA/VOMITING; Start 05/14/21 at 17:30 Oxcarbazepine (Trileptal) 900 mg BID PO Last administered on 05/15/21at 08:30; Start 05/15/21 at 09:00 Active Scripts Active Reported Oxcarbazepine 300 Mg Tablet 3 Tab PO BID 30 Days Allergies Allergies: Coded Allergies: No Known Drug Allergies (Unverified , 01/25/14) ROS Review of System Negative for fever, chills, weight loss, shortness of breath, chest pain, indigestion, hematochezia, melena, and dysuria. Full 14-point review of systems is negative. Physical Exam Physical Examination General: Well-developed, well-nourished black female in no acute distress HEENT: Normocephalic andatraumatic. Temporal arteriespulsatile and nontender. Neck: Supple without bruit, no meningismus Musculoskeletal: Stability:see neurologic. Gait exam:see neurologic. Tone:see neurologic.Str ength:see neurologic. Neurological: Mental Status:orientation, memory, attention span/concentration, language, fund of knowledge: Sleepy, arouses easily, knows date, location, names and repeats well.. Cranial Nerves:Pupils equal and reactive to light, extraocular movements areintact, visual corbin are full to confrontation. Facial sensation is normal. There is no facial asymmetry. Vestibulo-ocular reflex is intact. Palate elevates and tongue protrudes in midline. All other cranial related problems are negative except as mentioned before.Reflexes:2+ and symmetric with flexor plantar responses. Motor:5-/5 strength with normal tone and bulk. Coordination:Finger- nose finger and [id number] testing are normal. Rapid alternating movements and fine finger movements are intact. Gait:Not tested. Sensory:Normal pinprick, vibration, light touch, proprioception. Vitals VITALS Vital Signs Date Time Temp Pulse Resp B/P (MAP) Pulse Ox O2 Delivery O2 Flow Rate FiO2 05/15/21 10:45 98.2 46 16 101/53 (69) 95 Room Air 98.2 Labs Labs Laboratory Tests Test 05/14/21 11:45 05/14/21 13:45 05/14/21 13:50 05/15/21 06:55 Sodium Level 137 mmol/L (136-145) 141 mmol/L (136-145) Potassium Level 3.8 mmol/L (3.5-5.1) 3.4 mmol/L (3.5-5.1) Chloride Level 104 mmol/L (98-107) 105 mmol/L (98-107) Carbon Dioxide Level 24 mmol/L (21-32) 27 mmol/L (21-32) Anion Gap 9 (6-14) 9 (6-14) Blood Urea Nitrogen 9 mg/dL (7-20) 6 mg/dL (7-20) Creatinine 0.9 mg/dL (0.6-1.0) 0.7 mg/dL (0.6-1.0) Estimated GFR (Cockcroft-Gault) 89.6 119.7 Glucose Level 148 mg/dL (70-99) 79 mg/dL (70-99) Calcium Level 8.9 mg/dL (8.5-10.1) 8.6 mg/dL (8.5-10.1) Ethyl Alcohol Level < 10 mg/dL (0-10) Urine Collection Type U cath Urine Color Yellow Urine Clarity Cloudy Urine pH 7.5 (<5.0-8.0) Urine Specific [place] 1.020 (1.000-1.030) Urine Protein 30 mg/dL (NEG-TRACE) Urine Glucose (UA) Negative mg/dL (NEG) Urine Ketones (Stick) Negative mg/dL (NEG) Urine Blood Negative (NEG) Urine Nitrite Negative (NEG) Urine Bilirubin Negative (NEG) Urine Urobilinogen Dipstick 0.2 mg/dL (0.2 mg/dL) Urine Leukocyte Esterase Moderate (NEG) Urine RBC 3-5 /HPF (0-2) Urine WBC 20-40 /HPF (0-4) Urine Squamous Epithelial Cells Mod /LPF Urine Bacteria Mod /HPF (0-FEW) Urine Mucus Slight /LPF Urine Opiates Screen Neg (NEG) Urine Methadone Screen Neg (NEG) Urine Barbiturates Neg (NEG) Urine Phencyclidine Screen Neg (NEG) Urine Amphetamine/Methamphetamine Neg (NEG) Urine Benzodiazepines Screen Neg (NEG) Urine Cocaine Screen Neg (NEG) Urine Cannabinoids Screen Pos (NEG) Urine Ethyl Alcohol Neg (NEG) Bedside Urine HCG, Qualitative Hcg negative (Negative) White Blood Count 10.1 x10^3/uL (4.0-11.0) Red Blood Count 4.10 x10^6/uL (3.50-5.40) Hemoglobin 12.4 g/dL (12.0-15.5) Hematocrit 36.5 % (36.0-47.0) Mean Corpuscular Volume 89 fL (79-100) Mean Corpuscular Hemoglobin 30 pg (25-35) Mean Corpuscular Hemoglobin Concent 34 g/dL (31-37) Red Cell Distribution Width 14.2 % (11.5-14.5) Platelet Count 239 x10^3/uL (140-400) Neutrophils (%) (Auto) 73 % (31-73) Lymphocytes (%) (Auto) 19 % (24-48) Monocytes (%) (Auto) 8 % (0-9) Eosinophils (%) (Auto) 0 % (0-3) Basophils (%) (Auto) 0 % (0-3) Neutrophils # (Auto) 7.4 x10^3/uL (1.8-7.7) Lymphocytes # (Auto) 1.9 x10^3/uL (1.0-4.8) Monocytes # (Auto) 0.8 x10^3/uL (0.0-1.1) Eosinophils # (Auto) 0.0 x10^3/uL (0.0-0.7) Basophils # (Auto) 0.0 x10^3/uL (0.0-0.2) Phosphorus Level 2.9 mg/dL (2.6-4.7) Magnesium Level 1.8 mg/dL (1.8-2.4) Laboratory Tests Test 05/14/21 11:45 05/14/21 13:45 05/14/21 13:50 05/15/21 06:55 Sodium Level 137 mmol/L (136-145) 141 mmol/L (136-145) Potassium Level 3.8 mmol/L (3.5-5.1) 3.4 mmol/L (3.5-5.1) Chloride Level 104 mmol/L (98-107) 105 mmol/L (98-107) Carbon Dioxide Level 24 mmol/L (21-32) 27 mmol/L (21-32) Anion Gap 9 (6-14) 9 (6-14) Blood Urea Nitrogen 9 mg/dL (7-20) 6 mg/dL (7-20) Creatinine 0.9 mg/dL (0.6-1.0) 0.7 mg/dL (0.6-1.0) Estimated GFR (Cockcroft-Gault) 89.6 119.7 Glucose Level 148 mg/dL (70-99) 79 mg/dL (70-99) Calcium Level 8.9 mg/dL (8.5-10.1) 8.6 mg/dL (8.5-10.1) Ethyl Alcohol Level < 10 mg/dL (0-10) Urine Collection Type U cath Urine Color Yellow Urine Clarity Cloudy Urine pH 7.5 (<5.0-8.0) Urine Specific [place] 1.020 (1.000-1.030) Urine Protein 30 mg/dL (NEG-TRACE) Urine Glucose (UA) Negative mg/dL (NEG) Urine Ketones (Stick) Negative mg/dL (NEG) Urine Blood Negative (NEG) Urine Nitrite Negative (NEG) Urine Bilirubin Negative (NEG) Urine Urobilinogen Dipstick 0.2 mg/dL (0.2 mg/dL) Urine Leukocyte Esterase Moderate (NEG) Urine RBC 3-5 /HPF (0-2) Urine WBC 20-40 /HPF (0-4) Urine Squamous Epithelial Cells Mod /LPF Urine Bacteria Mod /HPF (0-FEW) Urine Mucus Slight /LPF Urine Opiates Screen Neg (NEG) Urine Methadone Screen Neg (NEG) Urine Barbiturates Neg (NEG) Urine Phencyclidine Screen Neg (NEG) Urine Amphetamine/Methamphetamine Neg (NEG) Urine Benzodiazepines Screen Neg (NEG) Urine Cocaine Screen Neg (NEG) Urine Cannabinoids Screen Pos (NEG) Urine Ethyl Alcohol Neg (NEG) Bedside Urine HCG, Qualitative Hcg negative (Negative) White Blood Count 10.1 x10^3/uL (4.0-11.0) Red Blood Count 4.10 x10^6/uL (3.50-5.40) Hemoglobin 12.4 g/dL (12.0-15.5) Hematocrit 36.5 % (36.0-47.0) Mean Corpuscular Volume 89 fL (79-100) Mean Corpuscular Hemoglobin 30 pg (25-35) Mean Corpuscular Hemoglobin Concent 34 g/dL (31-37) Red Cell Distribution Width 14.2 % (11.5-14.5) Platelet Count 239 x10^3/uL (140-400) Neutrophils (%) (Auto) 73 % (31-73) Lymphocytes (%) (Auto) 19 % (24-48) Monocytes (%) (Auto) 8 % (0-9) Eosinophils (%) (Auto) 0 % (0-3) Basophils (%) (Auto) 0 % (0-3) Neutrophils # (Auto) 7.4 x10^3/uL (1.8-7.7) Lymphocytes # (Auto) 1.9 x10^3/uL (1.0-4.8) Monocytes # (Auto) 0.8 x10^3/uL (0.0-1.1) Eosinophils # (Auto) 0.0 x10^3/uL (0.0-0.7) Basophils # (Auto) 0.0 x10^3/uL (0.0-0.2) Phosphorus Level 2.9 mg/dL (2.6-4.7) Magnesium Level 1.8 mg/dL (1.8-2.4) Images Images CT head without contrast 05/14/2021 2:33 PM INDICATION: Seizure with prolonged postictal phase. COMPARISON: CT head 07/31/2020 TECHNIQUE: Multiple axial CT images of the head were obtained from skull base through the vertex without intravenous contrast. FINDINGS: Head: Ventricles, sulci and basal cisterns are within normal limits. There is no hydrocephalus. Garza-white matter differentiation is normal. There is no acute intracranial hemorrhage. There is no mass, mass effect or midline shift. Posterior fossa is normal in appearance. Previously seen curvilinear hypodensity along the medial left occipital lobe representing occipital horn of left lateral ventricles not definitively seen on the current examination. Visualized portions of the orbits are normal. Paranasal sinuses are well aerated. Mastoid air cells are well aerated. Scalp and calvaria are normal. IMPRESSION: No acute intracranial hemorrhage. Assessment/Plan Assessment/Plan Impression: Epilepsy with breakthrough seizure(s), possibly due to noncompliance, THC and cystitis may contribute. She is still a little bit postictal. Acute cystitis Urine drug screen positive for cannabinoids Recommendations: I resumed her oxcarbazepine at the dose listed by nurse Treat urinary tract infection Observe one more night Discussed seizure precautions with the patient including no driving until 6 months without a seizure. Thank you for letting me help with the patient's care. ALEC JENNINGS MD May 15, 2021 11:26
--- NOTE | 2021-05-15 13:14 | PDOC ---
[facility] PROGRESS NOTE Date of Service DOS: DATE: 05/15/21 TIME: 13:11 Chief Complaint Chief Complaint Seizure History of Present Illness History of Present Illness History obtained from discussion with the ED physician and chart review: 30 year old female who presents with a seizure that reportedly happened at [employer] where she works. Unclear how long the seizure lasted. She was confused after the fact and continued to be confused for EMS. Reported GCS of 10. She reportedly has a history of seizures. Unclear of medication history, or other details regarding her epilepsy history. ED course: Upon arrival to the ED, patient had a recurrent seizure that approximately lasted for 1 minute. She was given 2 mg IV Ativan and a Keppra 2 g load. Boyfriend at bedside was able to provide additional history. Patient's boyfriend stated that she has less sleep the past couple days about 5 hours per night. She was given one dose of ceftriaxone for presumed UTI. Neurology was consulted and will admit for further observation and evaluation by neurology. 05/15 Patient valuated at bedside today. No further seizure-like activity. Patient has been sleeping a lot throughout today very lethargic today. Evaluated by neurology this morning recommend observing for tonight. Continue UTI treatment. Otherwise no major clinical changes. Vitals/I&O Vitals/I&O: Vital Signs Date Time Temp Pulse Resp B/P (MAP) Pulse Ox O2 Delivery O2 Flow Rate FiO2 05/15/21 10:45 98.2 46 16 101/53 (69) 95 Room Air 98.2 I & O 05/14/21 05/14/21 05/15/21 14:59 22:59 06:59 Intake Total 1000 ml Balance 1000 ml Physical Exam General: Alert, Oriented X3, Cooperative Heart: Regular rate, Normal S1, Normal S2 Lungs: Clear Abdomen: Normal bowel sounds, Soft, No tenderness Extremities: No edema, Normal pulses Skin: No significant lesion Labs Labs: Laboratory Tests Test 05/14/21 13:45 05/14/21 13:50 05/15/21 06:55 Urine Collection Type U cath Urine Color Yellow Urine Clarity Cloudy Urine pH 7.5 (<5.0-8.0) Urine Specific [place] 1.020 (1.000-1.030) Urine Protein 30 mg/dL (NEG-TRACE) Urine Glucose (UA) Negative mg/dL (NEG) Urine Ketones (Stick) Negative mg/dL (NEG) Urine Blood Negative (NEG) Urine Nitrite Negative (NEG) Urine Bilirubin Negative (NEG) Urine Urobilinogen Dipstick 0.2 mg/dL (0.2 mg/dL) Urine Leukocyte Esterase Moderate (NEG) Urine RBC 3-5 /HPF (0-2) Urine WBC 20-40 /HPF (0-4) Urine Squamous Epithelial Cells Mod /LPF Urine Bacteria Mod /HPF (0-FEW) Urine Mucus Slight /LPF Urine Opiates Screen Neg (NEG) Urine Methadone Screen Neg (NEG) Urine Barbiturates Neg (NEG) Urine Phencyclidine Screen Neg (NEG) Urine Amphetamine/Methamphetamine Neg (NEG) Urine Benzodiazepines Screen Neg (NEG) Urine Cocaine Screen Neg (NEG) Urine Cannabinoids Screen Pos (NEG) Urine Ethyl Alcohol Neg (NEG) Bedside Urine HCG, Qualitative Hcg negative (Negative) White Blood Count 10.1 x10^3/uL (4.0-11.0) Red Blood Count 4.10 x10^6/uL (3.50-5.40) Hemoglobin 12.4 g/dL (12.0-15.5) Hematocrit 36.5 % (36.0-47.0) Mean Corpuscular Volume 89 fL (79-100) Mean Corpuscular Hemoglobin 30 pg (25-35) Mean Corpuscular Hemoglobin Concent 34 g/dL (31-37) Red Cell Distribution Width 14.2 % (11.5-14.5) Platelet Count 239 x10^3/uL (140-400) Neutrophils (%) (Auto) 73 % (31-73) Lymphocytes (%) (Auto) 19 % (24-48) Monocytes (%) (Auto) 8 % (0-9) Eosinophils (%) (Auto) 0 % (0-3) Basophils (%) (Auto) 0 % (0-3) Neutrophils # (Auto) 7.4 x10^3/uL (1.8-7.7) Lymphocytes # (Auto) 1.9 x10^3/uL (1.0-4.8) Monocytes # (Auto) 0.8 x10^3/uL (0.0-1.1) Eosinophils # (Auto) 0.0 x10^3/uL (0.0-0.7) Basophils # (Auto) 0.0 x10^3/uL (0.0-0.2) Sodium Level 141 mmol/L (136-145) Potassium Level 3.4 mmol/L (3.5-5.1) Chloride Level 105 mmol/L (98-107) Carbon Dioxide Level 27 mmol/L (21-32) Anion Gap 9 (6-14) Blood Urea Nitrogen 6 mg/dL (7-20) Creatinine 0.7 mg/dL (0.6-1.0) Estimated GFR (Cockcroft-Gault) 119.7 Glucose Level 79 mg/dL (70-99) Calcium Level 8.6 mg/dL (8.5-10.1) Phosphorus Level 2.9 mg/dL (2.6-4.7) Magnesium Level 1.8 mg/dL (1.8-2.4) Assessment and Plan Assessmemt and Plan Problems Medical Problems: (1) Pyuria Status: Acute (2) Status epilepticus Status: Acute Recurrent seizure activity Acute toxic and infectious encephalopathy Acute cystitis THC positivity Admit to hospitalist service for further management Neurology consult for seizure evaluation Urine consistent with UTI, was initially given IV Rocephin we will give one-time fosfomycin dose SCD for DVT prophylaxis Continue IV fluids Regular diet CODE STATUS full code Discussed with RN and SW Disposition inpatient management as above DPOA: Carly Arenas Comment Review of Relevant I have reviewed the following items katheryn (where applicable) has been applied. Medications: Current Medications Medications (Trade) Dose Ordered Sig/Arturo Route PRN Reason Start Time Stop Time Status Last Admin Dose Admin Lorazepam (Ativan Inj) 2 mg 1X ONCE IVP 05/14/21 14:00 05/14/21 14:01 DC 05/14/21 14:10 Levetiracetam 1000 mg/Dextrose 110 ml @ 440 mls/hr 1X ONCE IV 05/14/21 14:00 05/14/21 14:14 DC 05/14/21 14:11 Ceftriaxone Sodium (Rocephin) 1 gm 1X ONCE IVP 05/14/21 15:00 05/14/21 15:01 DC 05/14/21 19:09 Sodium Chloride 1,000 ml @ 100 mls/hr Q10H IV 05/14/21 17:30 05/15/21 04:48 Oxcarbazepine (Trileptal) 900 mg BID PO 05/15/21 09:00 05/15/21 08:30 Justifications for Admission Other Justification Seizure TARA RESENDIZ MD May 15, 2021 13:14
[2021-05-15] MEDS ORDERED: FOSFOMYCIN TROMETHAMINE 3 GM PACKET PO ONE (14:00)
[2021-05-15 15:00] VITALS: BP 106/57
[2021-05-15] MEDS ORDERED: cefTRIAXone IV Push 1 GM VIAL. IVP SCH (15:00)
[2021-05-15 19:00] VITALS: BP 112/55
[2021-05-15 23:00] VITALS: BP 105/52
[2021-05-16 03:00] VITALS: BP 103/60
[2021-05-16 07:18] LABS: BASO % 0 % (0-3); EOS % 1 % (0-3); HEMOGLOBIN 11.6 g/dL (12.0-15.5); LYMPH % 26 % (24-48); MEAN CORPUSCULAR HEMOGLOBIN 30 pg (25-35); MEAN CORPUSCULAR HGB CONC 33 g/dL (31-37); MEAN CORPUSCULAR VOLUME 90 fL (79-100); MONO # 0.6 x10^3/uL (0.0-1.1); MONO % 8 % (0-9); NEUT % 65 % (31-73); PLATELET COUNT 219 x10^3/uL (140-400); RED CELL DISTRIBUTION WIDTH 14.2 % (11.5-14.5); WHITE BLOOD COUNT 7.6 x10^3/uL (4.0-11.0)
[2021-05-16 07:21] LABS: CALCIUM 8.3 mg/dL (8.5-10.1); CREATININE 0.8 mg/dL (0.6-1.0); GFR 102.6; MAGNESIUM 1.6 mg/dL (1.8-2.4); POTASSIUM 3.3 mmol/L (3.5-5.1)
[2021-05-16 07:27] VITALS: BP 112/53
[2021-05-16] MEDS: OXcarbazepine 300 MG TABLET PO SCH (07:49)
--- NOTE | 2021-05-16 08:38 | PDOC ---
PROGRESS NOTES Date of Service DATE: 05/16/21 TIME: 08:27 Assessment Problems Medical Problems: (1) Pyuria Status: Acute (2) Status epilepticus Status: Acute Epilepsy with breakthrough seizure(s), possibly due to noncompliance, THC and cystitis may contribute. She is still a little bit postictal. Acute cystitis Urine drug screen positive for cannabinoids Plan Oxcarbazepine at the dose listed by nurse Seizure precautions Home today Followup with her current neurologist Subjective No complaints, ready to go home Objective Vital Signs Date Time Temp Pulse Resp B/P (MAP) Pulse Ox O2 Delivery O2 Flow Rate FiO2 05/16/21 07:27 98.4 68 18 112/53 (72) 97 Room Air 98.4 PHYSICAL EXAM Physical Exam: Alert. Oriented to time, place and person. PERRL. EOMI. CN: no focal findings. Muscle tone: normal. Muscle strength: 5/5 DTR: 2+ Plantar reflex: flexor Gait: not examined in bed. Sensory exam: no abnormal findings. No cerebellar signs elicited. Review of Relevant I have reviewed the following items katheryn (where applicable) has been applied. Labs Laboratory Tests Test 05/14/21 11:45 05/14/21 13:45 05/14/21 13:50 05/15/21 06:55 Sodium Level 137 mmol/L (136-145) 141 mmol/L (136-145) Potassium Level 3.8 mmol/L (3.5-5.1) 3.4 mmol/L (3.5-5.1) Chloride Level 104 mmol/L (98-107) 105 mmol/L (98-107) Carbon Dioxide Level 24 mmol/L (21-32) 27 mmol/L (21-32) Anion Gap 9 (6-14) 9 (6-14) Blood Urea Nitrogen 9 mg/dL (7-20) 6 mg/dL (7-20) Creatinine 0.9 mg/dL (0.6-1.0) 0.7 mg/dL (0.6-1.0) Estimated GFR (Cockcroft-Gault) 89.6 119.7 Glucose Level 148 mg/dL (70-99) 79 mg/dL (70-99) Calcium Level 8.9 mg/dL (8.5-10.1) 8.6 mg/dL (8.5-10.1) Ethyl Alcohol Level < 10 mg/dL (0-10) Urine Collection Type U cath Urine Color Yellow Urine Clarity Cloudy Urine pH 7.5 (<5.0-8.0) Urine Specific [place] 1.020 (1.000-1.030) Urine Protein 30 mg/dL (NEG-TRACE) Urine Glucose (UA) Negative mg/dL (NEG) Urine Ketones (Stick) Negative mg/dL (NEG) Urine Blood Negative (NEG) Urine Nitrite Negative (NEG) Urine Bilirubin Negative (NEG) Urine Urobilinogen Dipstick 0.2 mg/dL (0.2 mg/dL) Urine Leukocyte Esterase Moderate (NEG) Urine RBC 3-5 /HPF (0-2) Urine WBC 20-40 /HPF (0-4) Urine Squamous Epithelial Cells Mod /LPF Urine Bacteria Mod /HPF (0-FEW) Urine Mucus Slight /LPF Urine Opiates Screen Neg (NEG) Urine Methadone Screen Neg (NEG) Urine Barbiturates Neg (NEG) Urine Phencyclidine Screen Neg (NEG) Urine Amphetamine/Methamphetamine Neg (NEG) Urine Benzodiazepines Screen Neg (NEG) Urine Cocaine Screen Neg (NEG) Urine Cannabinoids Screen Pos (NEG) Urine Ethyl Alcohol Neg (NEG) Bedside Urine HCG, Qualitative Hcg negative (Negative) White Blood Count 10.1 x10^3/uL (4.0-11.0) Red Blood Count 4.10 x10^6/uL (3.50-5.40) Hemoglobin 12.4 g/dL (12.0-15.5) Hematocrit 36.5 % (36.0-47.0) Mean Corpuscular Volume 89 fL (79-100) Mean Corpuscular Hemoglobin 30 pg (25-35) Mean Corpuscular Hemoglobin Concent 34 g/dL (31-37) Red Cell Distribution Width 14.2 % (11.5-14.5) Platelet Count 239 x10^3/uL (140-400) Neutrophils (%) (Auto) 73 % (31-73) Lymphocytes (%) (Auto) 19 % (24-48) Monocytes (%) (Auto) 8 % (0-9) Eosinophils (%) (Auto) 0 % (0-3) Basophils (%) (Auto) 0 % (0-3) Neutrophils # (Auto) 7.4 x10^3/uL (1.8-7.7) Lymphocytes # (Auto) 1.9 x10^3/uL (1.0-4.8) Monocytes # (Auto) 0.8 x10^3/uL (0.0-1.1) Eosinophils # (Auto) 0.0 x10^3/uL (0.0-0.7) Basophils # (Auto) 0.0 x10^3/uL (0.0-0.2) Phosphorus Level 2.9 mg/dL (2.6-4.7) Magnesium Level 1.8 mg/dL (1.8-2.4) Test 05/16/21 06:05 White Blood Count 7.6 x10^3/uL (4.0-11.0) Red Blood Count 3.90 x10^6/uL (3.50-5.40) Hemoglobin 11.6 g/dL (12.0-15.5) Hematocrit 35.0 % (36.0-47.0) Mean Corpuscular Volume 90 fL (79-100) Mean Corpuscular Hemoglobin 30 pg (25-35) Mean Corpuscular Hemoglobin Concent 33 g/dL (31-37) Red Cell Distribution Width 14.2 % (11.5-14.5) Platelet Count 219 x10^3/uL (140-400) Neutrophils (%) (Auto) 65 % (31-73) Lymphocytes (%) (Auto) 26 % (24-48) Monocytes (%) (Auto) 8 % (0-9) Eosinophils (%) (Auto) 1 % (0-3) Basophils (%) (Auto) 0 % (0-3) Neutrophils # (Auto) 5.0 x10^3/uL (1.8-7.7) Lymphocytes # (Auto) 2.0 x10^3/uL (1.0-4.8) Monocytes # (Auto) 0.6 x10^3/uL (0.0-1.1) Eosinophils # (Auto) 0.0 x10^3/uL (0.0-0.7) Basophils # (Auto) 0.0 x10^3/uL (0.0-0.2) Sodium Level 141 mmol/L (136-145) Potassium Level 3.3 mmol/L (3.5-5.1) Chloride Level 106 mmol/L (98-107) Carbon Dioxide Level 26 mmol/L (21-32) Anion Gap 9 (6-14) Blood Urea Nitrogen 11 mg/dL (7-20) Creatinine 0.8 mg/dL (0.6-1.0) Estimated GFR (Cockcroft-Gault) 102.6 Glucose Level 70 mg/dL (70-99) Calcium Level 8.3 mg/dL (8.5-10.1) Magnesium Level 1.6 mg/dL (1.8-2.4) Laboratory Tests Test 05/16/21 06:05 White Blood Count 7.6 x10^3/uL (4.0-11.0) Red Blood Count 3.90 x10^6/uL (3.50-5.40) Hemoglobin 11.6 g/dL (12.0-15.5) Hematocrit 35.0 % (36.0-47.0) Mean Corpuscular Volume 90 fL (79-100) Mean Corpuscular Hemoglobin 30 pg (25-35) Mean Corpuscular Hemoglobin Concent 33 g/dL (31-37) Red Cell Distribution Width 14.2 % (11.5-14.5) Platelet Count 219 x10^3/uL (140-400) Neutrophils (%) (Auto) 65 % (31-73) Lymphocytes (%) (Auto) 26 % (24-48) Monocytes (%) (Auto) 8 % (0-9) Eosinophils (%) (Auto) 1 % (0-3) Basophils (%) (Auto) 0 % (0-3) Neutrophils # (Auto) 5.0 x10^3/uL (1.8-7.7) Lymphocytes # (Auto) 2.0 x10^3/uL (1.0-4.8) Monocytes # (Auto) 0.6 x10^3/uL (0.0-1.1) Eosinophils # (Auto) 0.0 x10^3/uL (0.0-0.7) Basophils # (Auto) 0.0 x10^3/uL (0.0-0.2) Sodium Level 141 mmol/L (136-145) Potassium Level 3.3 mmol/L (3.5-5.1) Chloride Level 106 mmol/L (98-107) Carbon Dioxide Level 26 mmol/L (21-32) Anion Gap 9 (6-14) Blood Urea Nitrogen 11 mg/dL (7-20) Creatinine 0.8 mg/dL (0.6-1.0) Estimated GFR (Cockcroft-Gault) 102.6 Glucose Level 70 mg/dL (70-99) Calcium Level 8.3 mg/dL (8.5-10.1) Magnesium Level 1.6 mg/dL (1.8-2.4) Medications Current Medications Lorazepam (Ativan Inj) 2 mg STK-MED ONCE .ROUTE ; Start 05/14/21 at 13:33; Stop 05/14/21 at 13:33; Status DC Lorazepam (Ativan Inj) 2 mg 1X ONCE IVP Last administered on 05/14/21at 14:10; Start 05/14/21 at 14:00; Stop 05/14/21 at 14:01; Status DC Levetiracetam 1000 mg/Dextrose 110 ml @ 440 mls/hr 1X ONCE IV ; Start 05/14/21 at 14:00; Stop 05/14/21 at 14:14; Status UNV Levetiracetam 1000 mg/Dextrose 110 ml @ 440 mls/hr 1X ONCE IV Last administered on 05/14/21at 14:11; Start 05/14/21 at 14:00; Stop 05/14/21 at 14:14; Status DC Ceftriaxone Sodium (Rocephin) 1 gm 1X ONCE IVP Last administered on 05/14/21at 19:09; Start 05/14/21 at 15:00; Stop 05/14/21 at 15:01; Status DC Ceftriaxone Sodium (Rocephin) 1 gm Q24H IVP ; Start 05/15/21 at 15:00; Stop 05/15/21 at 13:15; Status DC Sennosides (Senna) 17.2 mg PRN BID PRN PO CONSTIPATION; Start 05/14/21 at 17:30 Docusate Sodium (Colace) 100 mg PRN DAILY PRN PO HARD STOOLS; Start 05/14/21 at 17:30 Ondansetron HCl (Zofran) 4 mg PRN Q6HRS PRN IVP NAUSEA/VOMITING, 1st CHOICE; Start 05/14/21 at 17:30 Dextrose (Dextrose 50%-Water Syringe) 12.5 gm PRN Q15MIN PRN IV SEE COMMENTS; Start 05/14/21 at 17:30 Sodium Chloride 1,000 ml @ 100 mls/hr Q10H IV Last administered on 05/15/21at 21:07; Start 05/14/21 at 17:30 Acetaminophen (Tylenol) 650 mg PRN Q4HRS PRN PO TEMP OVER 100.4F OR MILD PAIN; Start 05/14/21 at 17:30 Prochlorperazine Edisylate (Compazine) 10 mg PRN Q6HRS PRN IV NAUSEA/VOMITING, 2nd CHOICE; Start 05/14/21 at 17:30 Oxcarbazepine (Trileptal) 900 mg BID PO Last administered on 05/16/21at 07:49; Start 05/15/21 at 09:00 Fosfomycin Tromethamine (Monurol) 3 gm 1X ONCE PO Last administered on 05/15/21at 14:06; Start 05/15/21 at 14:00; Stop 05/15/21 at 14:01; Status DC Active Scripts Active Reported Oxcarbazepine 300 Mg Tablet 3 Tab PO BID 30 Days Vitals/I & O Vital Sign - Last 24 Hours 05/15/21 05/15/21 05/15/21 05/15/21 10:45 15:00 19:00 20:07 Temp 98.2 98.2 98.6 98.2 98.2 98.6 Pulse 46 66 66 Resp 16 16 16 B/P (MAP) 101/53 (69) 106/57 (73) 112/55 (74) Pulse Ox 95 94 98 O2 Delivery Room Air Room Air Room Air Room Air 05/15/21 05/16/21 05/16/21 23:00 03:00 07:27 Temp 98.5 98.1 98.4 98.5 98.1 98.4 Pulse 57 50 68 Resp 18 18 18 B/P (MAP) 105/52 (69) 103/60 (74) 112/53 (72) Pulse Ox 93 99 97 O2 Delivery Room Air Room Air Room Air Justicifation of Admission Dx: Justifications for Admission: Justification of Admission Dx: N/A ALEC JENNINGS MD May 16, 2021 08:38
[2021-05-16] MEDS ORDERED: OXCA300T19 PO (09:29)
[2021-05-16] MEDS: IV NORMAL SALINE 1000ML BAG 1,000 ML IV SCH (09:30)
--- NOTE | 2021-05-16 09:31 | PDOC3 ---
[facility]-Discharge Summary Date of Admission: Date of Admission: May 14, 2021 Date of Discharge: Date of Discharge: May 16, 2021 Admission Diagnosis: Problems: (1) Urinary tract infection (2) Status epilepticus Discharge Diagnosis: Discharge Diagnosis: Same Consults: Consults: Neurology Hospital Course: Hospital Course: Chief Complaint Seizure History of Present Illness History of Present Illness History obtained from discussion with the ED physician and chart review: 30 year old female who presents with a seizure that reportedly happened at [employer] where she works. Unclear how long the seizure lasted. She was confused after the fact and continued to be confused for EMS. Reported GCS of 10. She reportedly has a history of seizures. Unclear of medication history, or other details regarding her epilepsy history. ED course: Upon arrival to the ED, patient had a recurrent seizure that approximately lasted for 1 minute. She was given 2 mg IV Ativan and a Keppra 2 g load. Boyfriend at bedside was able to provide additional history. Patient's boyfriend stated that she has less sleep the past couple days about 5 hours per night. She was given one dose of ceftriaxone for presumed UTI. Neurology was consulted and will admit for further observation and evaluation by neurology. 05/15 Patient valuated at bedside today. No further seizure-like activity. Patient has been sleeping a lot throughout today very lethargic today. Evaluated by neurology this morning recommend observing for tonight. Continue UTI treatment. Otherwise no major clinical changes. 05/16 Patient evaluated at bedside. She is lying in bed with no complaints, eager to discharge home. Patient seen by neurology as well who agreed to discharge today. Will refill her Trileptal, can follow-up with outpatient neurologist Disposition: Disposition/Orders: D/C to Home Activity: Activity: Resume previous activity Diet: Diet: Regular Medications: Home Meds Active Scripts Oxcarbazepine (OXCARBAZEPINE) 300 Mg Tablet, 3 TAB PO BID for ANTI-SEIZURES for 60 Days, #360 TAB 0 Refills Prov:TARA RESENDIZ MD 05/16/21 Scheduled Oxcarbazepine (Oxcarbazepine), 3 TAB PO BID Justicifation of Admission Dx: Justifications for Admission: Justification of Admission Dx: N/A TARA RESENDIZ MD May 16, 2021 09:31
[2021-05-16] MEDS ORDERED: POTASSIUM CHLORIDE 20 MEQ TABLET.ER. PO ONE (10:30)
[2021-05-16 10:48] VITALS: BP 112/66
== END 2021-05-16 12:55 | disposition home or self-care (01) | DRG 100 ==
LOC: ER 11:28 → ED HOLD 15:43 → 4 NORTH 17:56
PROVIDERS: ADMIT Internal Medicine; ATTEND Internal Medicine
DX: G40.901 Epilepsy, unspecified, not intractable, with status epilepticus (principal); G92 Toxic encephalopathy; N30.00 Acute cystitis without hematuria; F12.90 Cannabis use, unspecified, uncomplicated; Z90.49 Acquired absence of other specified parts of digestive tract; Z91.19 Patient's noncompliance with other medical treatment and regimen
CPT/HCPCS: 36415; 70450; 80048; 80183; 80307; 81001; 81025; 83735; 84100; 85025; 87086; 96365; 96366; 96375; G0480; J0696; J1953; J2060; J7030; J7060; 99285-25; G0378

== ENCOUNTER 2021-12-31 10:03 | Emergency (ER) | payer OTHER ==
[~2021-12-31] VITALS: Ht 170.2 cm; Wt 81.8 kg
[~2021-12-31 10:03] MED LIST changes: +OXCA300T19 PO
[2021-12-31 10:33] VITALS: BP 125/68
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
[2021-12-31] MEDS ORDERED: IOHEXOL 300 MG/ML 100ML VIAL. IV ONE (11:00)
[2021-12-31] MEDS ORDERED: CONTRAST GIVEN. MC PRN (11:00)
== END 2021-12-31 11:37 | disposition left against medical advice (07) ==
LOC: ER 10:03
DX: G40.909 Epilepsy, unspecified, not intractable, without status epilepticus (principal)
CPT/HCPCS: 99284-25